=== PATIENT | male | born 1965 | race Caucasian/White ===

== ENCOUNTER 2017-08-07 16:21 | Emergency (ER) | payer MEDICAID, OTHER ==
[~2017-08-07] VITALS: Ht 185.4 cm; Wt 97.0 kg
[2017-08-07 16:22] VITALS: BP 110/71; PULSE 82; RESP 18; TEMP 98.3; O2SAT 99
[2017-08-07] MEDS ORDERED: LIDOCAINE HCL 1% 50 ML VIAL INFIL ONE (18:45)
--- NOTE | 2017-08-07 18:49 | PD ---
HPI Chief Complaint: Injury Time Seen by Provider: 18:34 Travel History International Travel<30 days: No Contact w/Intl Traveler<30days: No Traveled to known affect area: No History of Present Illness HPI 51-year-old male presents to emergency department complaining of right fourth finger pain for 2-3 days. Patient seen on laceration while work approximately 3 days ago. He went to [facility] and was treated with 2 antibiotics and they recommended he go to [facility] to see hand surgeon. Patient did not want to see a hand surgeon so he left against medical practice administrator there. Says that he received tetanus vaccination and x-rays. States compliance with his 2 antibiotics. His pain is moderate. Patient denies fever or chills. He does have full range of motion of his finger limited by pain and swelling. Exudate easily expressed with movement of his finger. PFSH Past Medical History Diabetes: Yes Patient Takes Glucophage: No Diminished Hearing: No Influenza Vaccination: No Past Surgical History Surgical History: No Previous Surgery Social History Alcohol Use: Yes (> 12 PACK/DAY ) Tobacco Use: Yes (1/2-1 PPD) Substance Use: No Allergies-Medications (Allergen,Severity, Reaction): Coded Allergies: No Known Allergies (Unverified , 08/07/17) Reported Meds & Prescriptions Reported Meds & Active Scripts Active Clindamycin (Clindamycin HCl) 300 Mg Cap 300 Mg PO TID 7 Days Review of Systems Except as stated in HPI: all other systems reviewed are Neg Physical Exam Narrative GENERAL: Well-nourished, well-developed patient. SKIN: Focused skin assessment warm/dry. HEAD: Normocephalic. EYES: No scleral icterus. No injection or drainage. NECK: Supple, trachea midline. No JVD or lymphadenopathy. CARDIOVASCULAR: Regular rate and rhythm without murmurs, gallops, or rubs. RESPIRATORY: Breath sounds equal bilaterally. No accessory muscle use. GASTROINTESTINAL: Abdomen soft, non-tender, nondistended. MUSCULOSKELETAL: No cyanosis, or edema. Right fourth finger- mild edema and erythema of the PIP and DIP. Patient has range of motion. Exploration demonstrated no involvement of the tendons. Neurovascularly intact. Mild TTP over MCP. Mild edema of the MCP. No lymphangitic Spread. BACK: Nontender without obvious deformity. No CVA tenderness. Data Data Last Documented VS Vital Signs Date Time Temp Pulse Resp B/P (MAP) Pulse Ox O2 Delivery O2 Flow Rate FiO2 08/07/17 20:05 80 16 115/72 (86) 99 08/07/17 18:06 Room Air 08/07/17 16:22 98.3 Orders Orders Lidocaine 1% Inj (50 Ml) (Xylocaine 1% I (08/07/17 18:45) Clindamycin Inj (Cleocin Inj) (08/07/17 19:45) Ed Discharge Order (08/07/17 19:38) Acetamin-Hydrocod 325-5 Mg ([place] 5-325 (08/07/17 20:30) MDM Medical Decision Making Medical Screen Exam Complete: Yes Emergency Medical Condition: Yes Differential Diagnosis Felon versus paronychia versus cellulitis versus abscess Narrative Course 51-year-old male presents to emergency department complaining of right fourth finger pain for 2-3 days. Patient seen on laceration while work approximately 3 days ago. He went to [facility] and was treated with 2 antibiotics and they recommended he go to [facility] to see hand surgeon. Patient did not want to see a hand surgeon so he left against medical practice administrator there. Says that he received tetanus vaccination and x-rays. States compliance with his 2 antibiotics. His pain is moderate. Patient denies fever or chills. He does have full range of motion of his finger limited by pain and swelling. Exudate easily expressed with movement of his finger. Vital signs stable Performed a digital block of the fourth palmar aspect of the MCP. Exploration of the wound demonstrated exudate easily expressed. No evidence of tendon or ligament involvement. No bony abnormality seen. Site irrigated copiously. After review of the [facility] records, patient did receive tetanus vaccination. An x-ray was also clear of bony involvement or foreign bodies. He also received 1 g vancomycin and outpatient Bactrim and Keflex. Patient and daughter state that the wound has worsened over the last day. Patient and daughter understand the severity of the wound on his right finger. Patient states that he will take antibiotics as prescribed follow-up with his primary care physician. I advised patient to stop Bactrim and Keflex and start clindamycin. Advised patient needs IV antibiotics the patient did not want these. I advised risk versus benefit patient understood. Patient agreed to clindamycin IM. Again I reminded patient the importance of strict follow-up and to return to the emergency department for worsening symptoms. I advised patient to return to emergency department if worsening signs of infection. Educated patient on the importance of follow-up for his diabetes. Procedures Procedure Narrative Right fourth digit digital block performed 1% lidocaine without epinephrine. Approximately 3 cc used to anesthetize the finger. Copiously irrigated and express the wound of exudate. No evidence of tendon or bony involvement after exploration. Wound care performed and advised patient on care at home. Diagnosis Primary Impression: Cellulitis Qualified Codes: L03.011 - Cellulitis of right finger Referrals: Primary Care Physician Additional Instructions: Take all medication as prescribed. Stop Bactrim and Keflex. He may remove dressing and packing in 24 hours. Replace dressings at least every 24 hours. Avoid submersion for 7-10 days. Follow-up with primary care physician within 2-3 days. Return to the emergency department for worsening or persistent symptoms. Scripts Clindamycin (Clindamycin) 300 Mg Cap 300 MG PO TID for Infection for 7 Days, CAP 0 Refills Prov: Troy Navarrete MD 08/07/17 Disposition: 01 DISCHARGE HOME Condition: Stable Jessica Toribio Aug 07, 2017 18:49
[2017-08-07] MEDS ORDERED: CLIN300C5 PO (19:34)
[2017-08-07] MEDS ORDERED: CLINDAMYCIN PHOS 600 MG/4 ML VIAL IM ONE (19:45)
[2017-08-07 20:05] VITALS: BP 115/72
[2017-08-07] MEDS ORDERED: ACETAMINOPHEN/HYDROcodone 325 MG/5 MG TAB PO ONE (20:30)
== END 2017-08-07 20:10 | disposition home or self-care (01) ==
LOC: NEPE 16:21
DX: L03.011 Cellulitis of right finger (principal); F17.200 Nicotine dependence, unspecified, uncomplicated; E11.9 Type 2 diabetes mellitus without complications
CPT/HCPCS: 10160; 96372